=== PATIENT | female | born 1990 | race Two or more races ===

== ENCOUNTER 2022-07-16 23:59 | Emergency (ER) | payer OTHER ==
[2022-07-17 00:13] VITALS: BP 111/72; PULSE 64; RESP 20; BMI 19.9
[2022-07-17] MEDS ORDERED: ACETAMINOPHEN 1000 MG/100 ML BAG IVPB ONE (00:54)
[2022-07-17] MEDS ORDERED: ACETAMINOPHEN INJECTION 100 ML IVPB ONE (01:29)
[2022-07-17 02:08] LABS: BASO % 0.6 % (0-2.0); CALCIUM 8.6 mg/dL (8.5-10.1); EOS % 0.7 % (0-4.5); HEMATOCRIT 33.8 % (32.4-45.2); HEMOGLOBIN 11.2 GM/dL (10.7-15.3); LYMPH % 20.8 % (8-40); MCH 29.4 pg (25.7-33.7); MEAN CELL VOLUME 89.1 fl (80-96); MEAN PLT VOLUME 8.7 fl (7.5-11.1); MONO % 6.8 % (3.8-10.2); NEUT % 71.1 % (42.8-82.8); PLATELET COUNT 264 10^3/uL (134-434); RBC 3.79 M/mm3 (3.60-5.2); RDW 15.7 % (11.6-15.6); WHITE BLOOD COUNT 7.8 K/mm3 (4.0-10.0)
[2022-07-17 02:09] LABS: ALBUMIN 3.6 g/dl (3.4-5.0); BLOOD UREA NITROGEN 8.9 mg/dL (7-18)
[2022-07-17 02:12] LABS: CREATININE 0.6 mg/dL (0.55-1.3)
[2022-07-17 02:14] LABS: BILIRUBIN,TOTAL 0.5 mg/dL (0.2-1); TOT PROT 6.6 g/dl (6.4-8.2)
[2022-07-17] MEDS ORDERED: POTASSIUM CHLORIDE TABS 20 MEQ TABLET.ER (FP) PO ONE ×2 (02:38→02:50)
[2022-07-17] MEDS ORDERED: KETOROLAC TROMETHAMINE 30 MG/1 ML VIAL IVPUSH ONE (04:00)
[2022-07-17] MEDS ORDERED: KETOROLAC TROMETHAMINE 30 MG/1 ML VIAL ONE (04:02)
== END 2022-07-17 04:13 | disposition home or self-care (01) ==
LOC: JER 23:59
PROC: 3E0333Z Introduction of Anti-inflammatory into Peripheral Vein, Percutaneous Approach (ICD-10-PCS; principal; 2022-07-16)
PROC: 3E0333Z Introduction of Anti-inflammatory into Peripheral Vein, Percutaneous Approach (ICD-10-PCS; 2022-07-16)
DX: R07.9 Chest pain, unspecified (principal)
CPT/HCPCS: 36415; 71045-TC-FY; 80053; 84484; 84703; 85025; 93005; 93010; 99285-25; C9803-CS; U0003; U0005

== ENCOUNTER 2022-07-18 08:55 | Emergency (ER) | payer OTHER ==
[2022-07-18 09:16] VITALS: BMI 23.9
[2022-07-18] MEDS ORDERED: SODIUM CHLORIDE 1,000 ML IV STA (10:08)
[2022-07-18] MEDS ORDERED: FAMOTIDINE 20 MG TABLET PO ONE (10:09)
[2022-07-18] MEDS ORDERED: MAG HYDROX/AL HYDROX/SIMETH 30 ML UNIT-DOSE CUP PO ONE (10:09)
[2022-07-18] MEDS ORDERED: MAG HYDROX/AL HYDROX/SIMETH 30 ML UNIT-DOSE CUP ONE (10:16)
[2022-07-18] MEDS ORDERED: FAMOTIDINE 20 MG TABLET ONE (10:16)
[2022-07-18 11:26] LABS: BASO % 0.8 % (0-2.0); EOS % 0.6 % (0-4.5); HEMATOCRIT 37.7 % (32.4-45.2); HEMOGLOBIN 12.2 GM/dL (10.7-15.3); MCH 29.7 pg (25.7-33.7); MCHC 32.5 g/dl (32.0-36.0); MEAN CELL VOLUME 91.2 fl (80-96); MEAN PLT VOLUME 9.2 fl (7.5-11.1); MONO % 5.3 % (3.8-10.2); NEUT % 77.3 % (42.8-82.8); PLATELET COUNT 287 10^3/uL (134-434); RBC 4.13 M/mm3 (3.60-5.2); RDW 15.8 % (11.6-15.6); WHITE BLOOD COUNT 8.2 K/mm3 (4.0-10.0)
[2022-07-18 11:34] LABS: INR 1.13 (0.83-1.09)
[2022-07-18 11:37] LABS: ACTIVATED PTT 29.9 SECONDS (25.2-36.5)
[2022-07-18 11:43] LABS: CALCIUM 8.8 mg/dL (8.5-10.1)
[2022-07-18 11:44] LABS: ALBUMIN 3.8 g/dl (3.4-5.0); BLOOD UREA NITROGEN 8.6 mg/dL (7-18); MAGNESIUM 1.9 mg/dL (1.8-2.4)
[2022-07-18 11:47] LABS: CREATININE 0.6 mg/dL (0.55-1.3)
[2022-07-18 11:48] LABS: BILIRUBIN,TOTAL 0.8 mg/dL (0.2-1); TOT PROT 6.7 g/dl (6.4-8.2)
[2022-07-18 11:52] LABS: N-TERMINAL BNP 39.1 pg/ml (5-125)
[2022-07-18 11:54] LABS: EPI CELLS >36 /uL (0-25.1); HYALINE CASTS 7 /uL (0-3.1); URINE APPEARANCE CLEAR; URINE BACTERIA 303 /uL (0-1359); URINE BILIRUBIN NEGATIVE (NEGATIVE); URINE COLOR YELLOW; URINE GLUCOSE (UA) NEGATIVE (NEGATIVE); URINE KETONE 2+ (NEGATIVE); URINE LEUK ESTERASE 1+ (NEGATIVE); URINE NITRITE NEGATIVE (NEGATIVE); URINE PROTEIN NEGATIVE (NEGATIVE); URINE RBC 10 /uL (0-23.9); URINE WBC 62 /uL (0-25.8)
[2022-07-18] MEDS ORDERED: NAPROXEN 500 MG TABLET PO ONE (12:06)
[2022-07-18] MEDS ORDERED: NAPROXEN 500 MG TABLET ONE (12:16)
[2022-07-18] MEDS ORDERED: ONDANSETRON *ODT* 4 MG TABLET SL ONE (12:18)
[2022-07-18] MEDS ORDERED: ONDANSETRON *ODT* 4 MG TABLET ONE (12:23)
[2022-07-18 12:55] VITALS: BP 110/68; PULSE 78; RESP 19; TEMP 98
== END 2022-07-18 12:55 | disposition home or self-care (01) ==
LOC: JER 08:55
PROC: 3E0337Z Introduction of Electrolytic and Water Balance Substance into Peripheral Vein, Percutaneous Approach (ICD-10-PCS; principal; 2022-07-18)
DX: N30.90 Cystitis, unspecified without hematuria (principal); R07.9 Chest pain, unspecified
CPT/HCPCS: 0241U-QW; 36415; 80053; 81003; 83690; 83735; 83880; 84484; 85025; 85379; 85610; 85730; 87086; 93005; 93010; 99284-25; Q0162

== ENCOUNTER 2022-09-13 17:16 | Emergency (ER) | payer OTHER ==
[2022-09-13 17:37] VITALS: BP 118/80; PULSE 64; RESP 19; TEMP 98.3; BMI 23.9
== END 2022-09-13 19:02 | disposition home or self-care (01) ==
LOC: JER 17:16
DX: R07.89 Other chest pain (principal)
CPT/HCPCS: 71046-TC-FY; 93005; 93010; 99284-25

== ENCOUNTER 2022-10-19 20:10 | Emergency (ER) | payer OTHER ==
[2022-10-19 20:59] VITALS: BP 143/62; PULSE 75; RESP 20; TEMP 98.4; BMI 23.9
[2022-10-20 00:17] LABS: THROAT:GRP A STREP NOT DETECTED (NOTDETECTED)
== END 2022-10-20 01:01 | disposition home or self-care (01) ==
LOC: JER 20:10
DX: R05.1 Acute cough (principal); R09.81 Nasal congestion; J02.9 Acute pharyngitis, unspecified
CPT/HCPCS: 0241U-QW; 87651; 99283-25

== ENCOUNTER 2023-01-15 00:58 | Observation (INO) | payer OTHER ==
[2023-01-15 01:13] VITALS: BMI 25.7
[2023-01-15] MEDS ORDERED: ONDANSETRON 4 MG/2 ML VIAL IVPUSH ONE ×2 (01:47→06:23)
[2023-01-15] MEDS ORDERED: LACTATED RINGERS SOLUTION 1,000 ML/1,000 ML INFUS.BAG IV SCH ×3 (02:00→11:00)
[2023-01-15] MEDS ORDERED: METOCLOPRAMIDE HCL INJECTION 10 MG/2 ML VIAL IVPB ONE (02:13)
[2023-01-15] MEDS ORDERED: METOCLOPRAMIDE HCL INJECTION 10 MG/2 ML VIAL ONE (02:26)
[2023-01-15 02:48] LABS: BASO % 0.2 % (0-2.0); EOS % 0.2 % (0-4.5); HEMOGLOBIN 10.9 GM/dL (10.7-15.3); LYMPH % 5.5 % (8-40); MCH 30.8 pg (25.7-33.7); MCHC 33.9 g/dl (32.0-36.0); MEAN CELL VOLUME 90.8 fl (80-96); MONO % 4.4 % (3.8-10.2); NEUT % 89.7 % (42.8-82.8); PLATELET COUNT 245 10^3/uL (134-434); RBC 3.53 M/mm3 (3.60-5.2); RDW 15.3 % (11.6-15.6); WHITE BLOOD COUNT 8.1 K/mm3 (4.0-10.0)
[2023-01-15 03:15] LABS: CALCIUM 8.3 mg/dL (8.5-10.1)
[2023-01-15 03:16] LABS: ALBUMIN 2.9 g/dl (3.4-5.0); BLOOD UREA NITROGEN 11.2 mg/dL (7-18)
[2023-01-15 03:19] LABS: CREATININE 0.5 mg/dL (0.55-1.3)
[2023-01-15 03:20] LABS: BILIRUBIN,TOTAL 0.5 mg/dL (0.2-1); TOT PROT 6.3 g/dl (6.4-8.2)
[2023-01-15 05:48] LABS: PH,URINE 5.5 (5.0-8.0); URINE APPEARANCE CLEAR; URINE BILIRUBIN NEGATIVE (NEGATIVE); URINE COLOR YELLOW; URINE GLUCOSE (UA) NEGATIVE (NEGATIVE); URINE KETONE 3+ (NEGATIVE); URINE LEUK ESTERASE NEGATIVE (NEGATIVE); URINE NITRITE NEGATIVE (NEGATIVE); URINE PROTEIN TRACE (NEGATIVE)
[2023-01-15] MEDS ORDERED: LACTATED RINGERS SOLUTION 1000 ML INFUS.BAG IV ONE (06:23)
[2023-01-15] MEDS ORDERED: ONDANSETRON 4 MG/2 ML VIAL ONE ×2 (06:28→15:06)
[2023-01-15] MEDS ORDERED: PYRIDOXINE HCL (B-6) 100 MG TABLET PO ONE (08:03)
[2023-01-15] MEDS ORDERED: PYRIDOXINE HCL 100 MG/1 ML VIAL IM ONE (08:04)
[2023-01-15] MEDS ORDERED: MAG HYDROX/AL HYDROX/SIMETH 30 ML UNIT-DOSE CUP PO PRN (10:56)
[2023-01-15] MEDS ORDERED: MULTIVITAMINS (DAILY MVI) TABLET (FP) ONE (11:05)
[2023-01-15] MEDS: MULTIVITAMINS (DAILY MVI) TABLET (FP) PO SCH (11:12)
[2023-01-15] MEDS: ONDANSETRON 4 MG/2 ML VIAL IVPUSH PRN ×2 (15:11→18:41)
[2023-01-15] MEDS: ACETAMINOPHEN 500 MG TABLET (FP) PO PRN (21:20)
[2023-01-16] MEDS: ACETAMINOPHEN 500 MG TABLET (FP) PO PRN ×4 (00:58→19:20)
[2023-01-16 08:53] LABS: BASO % 0.3 % (0-2.0); HEMATOCRIT 27.9 % (32.4-45.2); HEMOGLOBIN 9.2 GM/dL (10.7-15.3); LYMPH % 33.4 % (8-40); MCH 30.3 pg (25.7-33.7); MEAN CELL VOLUME 91.7 fl (80-96); MEAN PLT VOLUME 8.7 fl (7.5-11.1); MONO % 11.3 % (3.8-10.2); PLATELET COUNT 231 10^3/uL (134-434); RBC 3.05 M/mm3 (3.60-5.2); RDW 15.1 % (11.6-15.6); WHITE BLOOD COUNT 4.2 K/mm3 (4.0-10.0)
[2023-01-16 09:01] LABS: CALCIUM 7.9 mg/dL (8.5-10.1)
[2023-01-16 09:05] LABS: CREATININE 0.4 mg/dL (0.55-1.3)
[2023-01-16] MEDS ORDERED: MULTIVITAMINS (DAILY MVI) TABLET (FP) PO SCH (10:00)
[2023-01-16] MEDS: MULTIVITAMINS (DAILY MVI) TABLET (FP) PO SCH (11:08)
[2023-01-16] MEDS: ONDANSETRON 4 MG/2 ML VIAL IVPUSH PRN (12:26)
[2023-01-16] MEDS: ALBUTEROL SO4 HFA INHALER IH PRN (19:28)
[2023-01-17] MEDS: ACETAMINOPHEN 500 MG TABLET (FP) PO PRN ×2 (08:46→22:56)
[2023-01-17] MEDS: ALBUTEROL SO4 HFA INHALER IH PRN (08:51)
[2023-01-17] MEDS: MULTIVITAMINS (DAILY MVI) TABLET (FP) PO SCH (09:00)
[2023-01-17 13:41] LABS: BASO % 0.1 % (0-2.0); EOS % 0.4 % (0-4.5); HEMATOCRIT 28.7 % (32.4-45.2); HEMOGLOBIN 9.7 GM/dL (10.7-15.3); MCH 30.8 pg (25.7-33.7); MCHC 33.8 g/dl (32.0-36.0); MEAN CELL VOLUME 91.1 fl (80-96); MEAN PLT VOLUME 7.8 fl (7.5-11.1); MONO % 8.1 % (3.8-10.2); NEUT % 67.4 % (42.8-82.8); PLATELET COUNT 241 10^3/uL (134-434); RBC 3.15 M/mm3 (3.60-5.2); RDW 15.2 % (11.6-15.6); WHITE BLOOD COUNT 5.6 K/mm3 (4.0-10.0)
[2023-01-17 14:51] LABS: ALBUMIN 2.3 g/dl (3.4-5.0); BLOOD UREA NITROGEN 7.8 mg/dL (7-18); CALCIUM 8.2 mg/dL (8.5-10.1)
[2023-01-17 14:54] LABS: CREATININE 0.4 mg/dL (0.55-1.3)
[2023-01-17 14:57] LABS: BILIRUBIN,TOTAL 0.2 mg/dL (0.2-1); TOT PROT 5.4 g/dl (6.4-8.2)
[2023-01-18] MEDS: ACETAMINOPHEN 500 MG TABLET (FP) PO PRN (09:54)
[2023-01-18] MEDS: MULTIVITAMINS (DAILY MVI) TABLET (FP) PO SCH (09:55)
[2023-01-18 10:01] VITALS: BP 101/52; PULSE 93; RESP 16; TEMP 98.1
== END 2023-01-18 13:11 | disposition home or self-care (01) ==
LOC: JER 00:58 → JERBED 10:20 → J3W 17:21
PROVIDERS: ADMIT Internal Medicine; ATTEND Internal Medicine
PROC: BY4CZZZ Ultrasonography of Second Trimester, Single Fetus (ICD-10-PCS; principal; 2023-01-15)
PROC: 3E033GC Introduction of Other Therapeutic Substance into Peripheral Vein, Percutaneous Approach (ICD-10-PCS; 2023-01-15)
PROC: 3E0337Z Introduction of Electrolytic and Water Balance Substance into Peripheral Vein, Percutaneous Approach (ICD-10-PCS; 2023-01-15)
PROC: 3E013GC Introduction of Other Therapeutic Substance into Subcutaneous Tissue, Percutaneous Approach (ICD-10-PCS; 2023-01-15)
PROC: 3E023GC Introduction of Other Therapeutic Substance into Muscle, Percutaneous Approach (ICD-10-PCS; 2023-01-15)
DX: O21.9 Vomiting of pregnancy, unspecified (principal); Z3A.18 18 weeks gestation of pregnancy; R10.9 Unspecified abdominal pain; J45.20 Mild intermittent asthma, uncomplicated; N13.30 Unspecified hydronephrosis; Z88.6 Allergy status to analgesic agent
CPT/HCPCS: 0241U-QW; 36415; 74181-TC; 76705-TC; 76775-TC; 76815; 76856-TC; 80048; 80053; 81003; 83690; 85025; 87086; 96372; 96374; 96375; 96376; 99285-25; G0378

== ENCOUNTER 2023-02-02 11:56 | Emergency (ER) | payer OTHER ==
[2023-02-02 12:05] VITALS: TEMP 97.8; BMI 26.5
[2023-02-02] MEDS ORDERED: LIDOCAINE 5% TOPICAL PATCH TP ONE (13:20)
[2023-02-02] MEDS ORDERED: ACETAMINOPHEN 500 MG TABLET (FP) PO ONE (13:22)
[2023-02-02] MEDS ORDERED: LIDOCAINE 5% TOPICAL PATCH ONE (13:22)
[2023-02-02] MEDS ORDERED: ACETAMINOPHEN 500 MG TABLET (FP) ONE (13:23)
[2023-02-02 14:27] VITALS: BP 97/55; PULSE 62; RESP 18
[2023-02-02] MEDS ORDERED: LIDOCAINE PATCH REMOVAL MC ONE (22:00)
== END 2023-02-02 15:38 | disposition home or self-care (01) ==
LOC: JERFT 11:56 → JER 11:56
DX: O26.892 Other specified pregnancy related conditions, second trimester (principal); M62.838 Other muscle spasm; Z3A.20 20 weeks gestation of pregnancy
CPT/HCPCS: 99283-25

== ENCOUNTER 2023-04-13 18:48 | Emergency (ER) | payer OTHER ==
[2023-04-13 18:51] VITALS: RESP 18; BMI 28.3
[2023-04-13 21:27] LABS: BASO % 0.2 % (0-2.0); EOS % 0.6 % (0-4.5); HEMATOCRIT 26.4 % (32.4-45.2); HEMOGLOBIN 8.5 GM/dL (10.7-15.3); LYMPH % 23.6 % (8-40); MCH 26.9 pg (25.7-33.7); MCHC 32.2 g/dl (32.0-36.0); MEAN CELL VOLUME 83.5 fl (80-96); MEAN PLT VOLUME 7.8 fl (7.5-11.1); MONO % 6.1 % (3.8-10.2); NEUT % 69.5 % (42.8-82.8); PLATELET COUNT 274 10^3/uL (134-434); RBC 3.15 M/mm3 (3.60-5.2); WHITE BLOOD COUNT 7.1 K/mm3 (4.0-10.0)
[2023-04-13 21:56] LABS: POTASSIUM 3.3 mmol/L (3.5-5.1)
[2023-04-13 21:59] LABS: ALBUMIN 2.4 g/dl (3.4-5.0); BLOOD UREA NITROGEN 8.8 mg/dL (7-18); MAGNESIUM 1.8 mg/dL (1.8-2.4)
[2023-04-13 22:02] LABS: CREATININE 0.5 mg/dL (0.55-1.3); PHOSPHOROUS 2.6 mg/dL (2.5-4.9)
[2023-04-13 22:03] LABS: BILIRUBIN,TOTAL 0.2 mg/dL (0.2-1)
[2023-04-13 22:46] LABS: EPI CELLS >36 /uL (0-25.1); HYALINE CASTS 7 /uL (0-3.1); URINE APPEARANCE CLOUDY; URINE BACTERIA 1211 /uL (0-1359); URINE BILIRUBIN NEGATIVE (NEGATIVE); URINE COLOR YELLOW; URINE GLUCOSE (UA) NEGATIVE (NEGATIVE); URINE KETONE TRACE (NEGATIVE); URINE LEUK ESTERASE 1+ (NEGATIVE); URINE NITRITE NEGATIVE (NEGATIVE); URINE PROTEIN TRACE (NEGATIVE); URINE UROBILINOGEN 0.2 mg/dL (0.2-1.0); URINE WBC 136 /uL (0-25.8)
[2023-04-13 23:06] LABS: URINE RBC 23 /uL (0-23.9)
[2023-04-14] MEDS ORDERED: CEPHALEXIN MONOHYDRATE 500 MG CAPSULE (UD) PO ONE (00:03)
[2023-04-14] MEDS ORDERED: CEPHALEXIN MONOHYDRATE 500 MG CAPSULE (UD) ONE (00:15)
[2023-04-14 02:16] VITALS: BP 104/62; PULSE 81; TEMP 98
== END 2023-04-14 02:06 | disposition home or self-care (01) ==
LOC: JER 18:48
DX: O99.513 Diseases of the respiratory system complicating pregnancy, third trimester (principal); R06.02 Shortness of breath; O23.43 Unspecified infection of urinary tract in pregnancy, third trimester; Z3A.31 31 weeks gestation of pregnancy
CPT/HCPCS: 36415; 71046-TC-FY; 80053; 81003; 83735; 84100; 84484; 85025; 85379; 87086; 93005; 93010; 99285-25

== ENCOUNTER 2023-05-19 16:15 | Inpatient (IN) | payer OTHER ==
[~2023-05-19 16:15] MED LIST: BETAMET ACET/BETAMET NA PH 30 MG/5 ML VIAL IM ONE
[2023-05-19] MEDS ORDERED: BETAMET ACET/BETAMET NA PH 30 MG/5 ML VIAL ONE (16:51)
[2023-05-19] MEDS: ELECTROLYTE-148 SOLN 1,000 ML IV SCH ×2 (17:00→23:50)
[2023-05-19 17:14] VITALS: BMI 30.8
[2023-05-19] MEDS ORDERED: DINOPROSTONE 10 MG VAGINAL SUPPOSITORY VG ONE (17:30)
[2023-05-19 19:18] LABS: BASO % 0.4 % (0-2.0); EOS % 0.9 % (0-4.5); HEMATOCRIT 29.3 % (32.4-45.2); HEMOGLOBIN 9.5 GM/dL (10.7-15.3); LYMPH % 22.6 % (8-40); MCH 28.9 pg (25.7-33.7); MCHC 32.5 g/dl (32.0-36.0); MEAN CELL VOLUME 88.8 fl (80-96); MEAN PLT VOLUME 8.9 fl (7.5-11.1); MONO % 8.8 % (3.8-10.2); NEUT % 67.3 % (42.8-82.8); PLATELET COUNT 251 10^3/uL (134-434); RDW 23.6 % (11.6-15.6); WHITE BLOOD COUNT 7.5 K/mm3 (4.0-10.0)
[2023-05-19 19:23] LABS: INR 0.97 (0.83-1.09); PROTHROMBIN TIME (PATIENT) 11.3 SEC (9.7-13.0)
[2023-05-19 19:25] LABS: ACTIVATED PTT 26.9 SECONDS (25.2-36.5)
[2023-05-19 19:46] LABS: POTASSIUM 3.8 mmol/L (3.5-5.1)
[2023-05-19 19:48] LABS: BLOOD UREA NITROGEN 7.2 mg/dL (7-18); CALCIUM 8.3 mg/dL (8.5-10.1)
[2023-05-19 19:52] LABS: CREATININE 0.6 mg/dL (0.55-1.3)
[2023-05-19 20:04] LABS: SYPHILIS W/ RPR CONF NON-REACTIVE (NONREACTIVE)
[2023-05-19 20:33] LABS: HIV INTERPRETATION NEGATIVE (NEGATIVE)
[2023-05-19 20:59] LABS: ANISOCYTOSIS 1+; MACROCYTOSIS 0; PLATELET ESTIMATE NORMAL
[2023-05-20] MEDS: ELECTROLYTE-148 SOLN 1,000 ML IV SCH ×3 (03:30→19:00)
[2023-05-20] MEDS ORDERED: OXYTOCIN 30 UNITS in 0.9% NS 30 UNIT/500 ML INFUS.BAG IVPB ONE (08:03)
[2023-05-20] MEDS ORDERED: AMPICILLIN SODIUM 2 GM VIAL ONE (08:09)
[2023-05-20] MEDS ORDERED: AMPICILLIN - 2 GM in SODIUM CHLORIDE 100 ML IVPB ONE (08:14)
[2023-05-20] MEDS ORDERED: FENTANYL/BUPIVACAINE/NS/PF - PCEA - 50 ML DISP.SYRIN EP ONE ×4 (08:22→17:02)
[2023-05-20] MEDS ORDERED: LIDO 2%/EPI 1:200000 PRESRVFRE (20 ML SDVIAL) ONE (08:25)
[2023-05-20] MEDS ORDERED: BUPIVACAINE HCL/PF 0.25% (2.5MG/ML) 10 ML VIAL ONE (08:26)
[2023-05-20] MEDS ORDERED: OXYTOCIN 30 UNITS in 0.9% NS 30 UNIT/500 ML INFUS.BAG IVPB SCH (08:30)
[2023-05-20] MEDS: FENTANYL/BUPIVACAINE/NS/PF - PCEA - 50 ML DISP.SYRIN EP SCH (08:40)
[2023-05-20] MEDS ORDERED: NALOXONE HCL 0.4 MG/ML VIAL IVPUSH PRN (08:49)
[2023-05-20] MEDS ORDERED: AMPICILLIN SODIUM 1 GM VIAL ONE ×2 (12:18→16:29)
[2023-05-20] MEDS: AMPICILLIN - 1 GM in SODIUM CHLORIDE 100 ML IVPB SCH ×3 (12:20→21:22)
[2023-05-20] MEDS ORDERED: OXYTOCIN 20 UNITS in 0.9% NS 20 UNIT/1,000 ML INFUS.BAG IV ONE (19:56)
[2023-05-20] MEDS ORDERED: WITCH HAZEL 50% (TUCKS) 40 PAD/JAR PAD TP PRN (20:24)
[2023-05-20] MEDS ORDERED: METHYLERGONOVINE MALEATE 0.2 MG/1 ML AMP IM PRN (20:24)
[2023-05-20] MEDS ORDERED: BENZOCAINE 20% 57 GM BOTTLE TP PRN (20:24)
[2023-05-20] MEDS ORDERED: BISACODYL 10 MG SUPP.RECT RC PRN (20:24)
[2023-05-20] MEDS ORDERED: BENZOCAINE 28 GM HEMORRHOIDAL OINTMENT TP PRN (20:24)
[2023-05-20] MEDS ORDERED: OXYTOCIN 20 UNITS in 0.9% NS 20 UNIT/1,000 ML INFUS.BAG IV SCH (20:30)
[2023-05-20] MEDS ORDERED: ACETAMINOPHEN 325 MG TABLET (FP) ONE (20:44)
[2023-05-20 20:50] LABS: CORD BASE EXCESS -2.7 mmol/L (0-2); CORD HCO3 22.3 mmHg (20-29); CORD PCO2 39.3 mmHg (30-78); CORD pH 7.371 (7.14-7.44)
[2023-05-20 20:51] LABS: CORD BASE EXCESS -5.8 mmol/L (0-2); CORD HCO3 18.9 mmHg (20-29); CORD PCO2 35.1 mmHg (30-78); CORD pH 7.348 (7.14-7.44)
[2023-05-20] MEDS: IBUPROFEN 600 MG TABLET (FP) PO PRN (23:14)
[2023-05-21] MEDS: ACETAMINOPHEN 325 MG TABLET (FP) PO PRN ×4 (00:14→21:13)
[2023-05-21] MEDS: IBUPROFEN 600 MG TABLET (FP) PO PRN ×4 (04:45→23:40)
[2023-05-21 08:20] LABS: BASO % 0.3 % (0-2.0); EOS % 0.1 % (0-4.5); HEMATOCRIT 27.9 % (32.4-45.2); HEMOGLOBIN 8.9 GM/dL (10.7-15.3); LYMPH % 14.1 % (8-40); MCH 28.4 pg (25.7-33.7); MCHC 31.8 g/dl (32.0-36.0); MEAN CELL VOLUME 89.6 fl (80-96); MEAN PLT VOLUME 9.1 fl (7.5-11.1); NEUT % 77.5 % (42.8-82.8); PLATELET COUNT 229 10^3/uL (134-434); RBC 3.12 M/mm3 (3.60-5.2); WHITE BLOOD COUNT 14.7 K/mm3 (4.0-10.0)
[2023-05-21] MEDS: AMPICILLIN - 1 GM in SODIUM CHLORIDE 100 ML IVPB SCH ×2 (08:23→13:09)
[2023-05-21] MEDS ORDERED: ALBUTEROL SO4 HFA INHALER IH PRN (09:20)
[2023-05-21] MEDS: FLUTICASONE/SALMETEROL 100 MCG/50 MCG DISKUS IH SCH ×2 (11:15→21:10)
[2023-05-21] MEDS: FENTANYL/BUPIVACAINE/NS/PF - PCEA - 50 ML DISP.SYRIN EP SCH (13:07)
[2023-05-21] MEDS ORDERED: SENNOSIDES/DOCUSATE COMBO (SENNA PLUS) TABLET (UD) PO PRN (22:00)
[2023-05-21 22:38] VITALS: RESP 17
[2023-05-22] MEDS: ACETAMINOPHEN 325 MG TABLET (FP) PO PRN (05:16)
[2023-05-22 09:15] VITALS: BP 99/59; PULSE 64; TEMP 98.3
[2023-05-22] MEDS: IBUPROFEN 600 MG TABLET (FP) PO PRN (09:51)
[2023-05-22] MEDS: FLUTICASONE/SALMETEROL 100 MCG/50 MCG DISKUS IH SCH (09:52)
== END 2023-05-22 17:50 | disposition home or self-care (01) | DRG 560 ==
LOC: JLDR 16:15 → J3W 05-20 22:25
PROVIDERS: ADMIT Obstetrics & Gynecology; ATTEND Obstetrics & Gynecology
PROC: 3E0P7VZ Introduction of Hormone into Female Reproductive, Via Natural or Artificial Opening (ICD-10-PCS; 2023-05-19)
PROC: 10E0XZZ Delivery of Products of Conception, External Approach (ICD-10-PCS; principal; 2023-05-20)
DX: O41.03X0 Oligohydramnios, third trimester, not applicable or unspecified (principal); O69.81X0 Labor and delivery complicated by cord around neck, without compression, not applicable or unspecified; R60.0 Localized edema; M79.671 Pain in right foot; Z87.440 Personal history of urinary (tract) infections; Z3A.36 36 weeks gestation of pregnancy; Z37.0 Single live birth
CPT/HCPCS: 36415; 36600; 59025; 80048; 82803; 85025; 85610; 85730; 86780; 86850; 86900; 86901; 87389; 96372

== ENCOUNTER 2023-12-18 17:16 | Emergency (ER) | payer OTHER ==
[2023-12-18 17:25] VITALS: BP 118/67; PULSE 97; RESP 18; TEMP 98.3; BMI 29.5
[2023-12-18 18:36] LABS: PH,URINE 5.5 (5.0-8.0); URINE APPEARANCE CLEAR; URINE BILIRUBIN NEGATIVE (NEGATIVE); URINE COLOR YELLOW; URINE GLUCOSE (UA) NEGATIVE (NEGATIVE); URINE KETONE NEGATIVE (NEGATIVE); URINE LEUK ESTERASE NEGATIVE (NEGATIVE); URINE NITRITE NEGATIVE (NEGATIVE); URINE PROTEIN NEGATIVE (NEGATIVE)
[2023-12-18 18:39] LABS: HCG,QUALITATIVE URINE Negative
[2023-12-18] MEDS ORDERED: KETOROLAC TROMETHAMINE 30 MG/1 ML VIAL IVPUSH ONE (20:05)
[2023-12-18] MEDS ORDERED: SODIUM CHLORIDE 0.9% 500 ML INFUS.BAG IV ONE (20:06)
[2023-12-18] MEDS ORDERED: KETOROLAC TROMETHAMINE 30 MG/1 ML VIAL ONE (20:18)
[2023-12-18 20:43] LABS: BASO % 0.8 % (0-2.0); HEMATOCRIT 39.7 % (32.4-45.2); HEMOGLOBIN 12.8 GM/dL (10.7-15.3); LYMPH % 31.5 % (8-40); MCH 29.9 pg (25.7-33.7); MCHC 32.3 g/dl (32.0-36.0); MEAN CELL VOLUME 92.5 fl (80-96); MEAN PLT VOLUME 8.4 fl (7.5-11.1); MONO % 8.6 % (3.8-10.2); NEUT % 58.1 % (42.8-82.8); PLATELET COUNT 295 10^3/uL (134-434); RBC 4.29 M/mm3 (3.60-5.2); WHITE BLOOD COUNT 8.8 K/mm3 (4.0-10.0)
[2023-12-18 22:46] LABS: ALBUMIN 3.4 g/dl (3.4-5.0); BILIRUBIN,TOTAL 0.2 mg/dL (0.2-1); BLOOD UREA NITROGEN 10.1 mg/dL (7-18); CALCIUM 8.8 mg/dL (8.5-10.1); CREATININE 0.6 mg/dL (0.55-1.3); POTASSIUM 3.8 mmol/L (3.5-5.1); TOT PROT 6.8 g/dl (6.4-8.2)
== END 2023-12-18 23:01 | disposition home or self-care (01) ==
LOC: JERFT 17:16
PROC: 3E033NZ Introduction of Analgesics, Hypnotics, Sedatives into Peripheral Vein, Percutaneous Approach (ICD-10-PCS; principal; 2023-12-18)
DX: R10.9 Unspecified abdominal pain (principal); M54.6 Pain in thoracic spine
CPT/HCPCS: 36415; 74176-TC; 80053; 81003; 84703; 85025; 87086; 99284-25

== ENCOUNTER 2024-06-01 19:03 | Emergency (ER) | payer OTHER ==
[2024-06-01 19:11] VITALS: BP 103/73; PULSE 60; RESP 18; TEMP 98.5; BMI 32.8
[2024-06-01] MEDS ORDERED: DEXAMETHASONE 4 MG TABLET (FP) ONE (20:46)
[2024-06-01] MEDS ORDERED: IBUPROFEN 400 MG TABLET (FP) PO ONE (20:46)
[2024-06-01] MEDS: DEXAMETHASONE 4 MG TABLET (FP) PO ONE (20:48)
[2024-06-01] MEDS: IBUPROFEN 400 MG TABLET (FP) PO ONE (20:48)
== END 2024-06-01 21:21 | disposition home or self-care (01) ==
LOC: JERFT 19:03
DX: H92.02 Otalgia, left ear (principal); J02.9 Acute pharyngitis, unspecified; J06.9 Acute upper respiratory infection, unspecified; R09.81 Nasal congestion
CPT/HCPCS: 87651; 99283-25